=== PATIENT | female | born 1960 | race Caucasian/White ===

== ENCOUNTER 2017-03-12 10:24 | Inpatient (IN) | payer BC ==
[~2017-03-12] VITALS: Ht 160 cm; Wt 59.9 kg
[2017-03-12 11:24] LABS: HEMATOCRIT 49.9 % (36.0-46.0); MCH 33.3 PG (29.0-34.0); MCHC 33.9 G/DL (30.0-36.0); MCV 98.4 FL (83-99); MEAN PLAT.VOLUME 9.9 uM^3 (9.5-12.4); PLATELET COUNT 259 K/uL (156-360); RBC DIS.WIDTH-CV 12.8 % (11.8-14.6); RBC DIS.WIDTH-SD 46.1 % (39-53); RED BLOOD COUNT 5.07 M/uL (3.80-5.20); WHITE BLOOD COUNT 6.1 K/uL (4.1-10.2)
[2017-03-12 11:33] LABS: CHLORIDE 107 mEq/L (99-109); POTASSIUM 4.2 mEq/L (3.7-5.4); SODIUM 141 mEq/L (136-147)
[2017-03-12 11:35] LABS: GLUCOSE 111 mg/dL (70-99)
[2017-03-12 11:36] LABS: ANION GAP 10 MEQ/L (2-14)
[2017-03-12 11:39] LABS: GFR ESTIMATE (CALCULATED) > 59 mL/min/
[2017-03-12 11:40] LABS: UREA NITROGEN (BUN) 14 mg/dL (9-23)
[2017-03-12] MEDS ORDERED: ANORO ELLIPTA1 EACH IH (13:39)
[2017-03-12] MEDS ORDERED: PREMPRO 0.451 TABLET PO (13:39)
[2017-03-12] MEDS ORDERED: LEVO-T75 MCG PO (13:39)
[2017-03-12] MEDS ORDERED: PROAIR HFA8.5 GM IH (13:40)
[2017-03-12] MEDS ORDERED: CALCIUM 600 +1 EAC2 PO (13:40)
[2017-03-12] MEDS ORDERED: VITAMIN E400 UNIT PO (13:40)
[2017-03-12] MEDS ORDERED: DAILY VITE1 EAC1 PO (13:41)
[2017-03-12] MEDS ORDERED: ECHINACEA EXTR125 MG PO (13:41)
[2017-03-12] MEDS ORDERED: BIOTIN1000 MICRO PO (13:41)
[2017-03-12] MEDS ORDERED: FISH OIL 1,0001 EAC7 PO (13:42)
[2017-03-12 18:16] LABS: AMPHETAMINE NEGATIVE (500 ng/mL); BARBITURATES NEGATIVE (200 ng/mL); BENZODIAZEPINES NEGATIVE (150 ng/mL); COCAINE NEGATIVE (150 ng/mL); INTERNAL CONTROLS VALID? YES; METHADONE NEGATIVE (200 ng/mL); METHAMPHETAMINE NEGATIVE (500 ng/mL); OPIATES (MORPHINE) PRESUMPTIVE POSITIVE (100 ng/mL); OXYCODONE NEGATIVE (100 ng/mL); PHENCYCLIDINE NEGATIVE (25 ng/mL); PROPOXYPHENE NEGATIVE (300 ng/mL); THC CANNABINOIDS NEGATIVE (50 ng/mL); TRICYCLIC ANTIDEPRESSANTS NEGATIVE (300 ng/mL)
[2017-03-12 18:17] LABS: ADD MEDTOX COMMENT Y
[2017-03-12 18:38] VITALS: BP 105/55
[2017-03-12 20:20] VITALS: BP 95/49
[2017-03-12 23:42] VITALS: BP 104/50
[2017-03-13 04:02] VITALS: BP 104/51
[2017-03-13 07:56] VITALS: BP 121/60
[2017-03-13 12:00] VITALS: BP 114/55
[2017-03-13 16:02] VITALS: BP 122/58
[2017-03-13 19:50] VITALS: BP 120/53
[2017-03-13 23:32] VITALS: BP 107/51
[2017-03-14 08:00] VITALS: BP 111/54
[2017-03-14 16:57] VITALS: BP 116/56
[2017-03-14 23:40] VITALS: BP 105/55
[2017-03-15 08:11] VITALS: BP 108/61
[2017-03-15 16:24] VITALS: BP 117/73
[2017-03-15 23:45] VITALS: BP 105/55
[2017-03-16 07:26] VITALS: BP 108/53
[2017-03-16 15:47] VITALS: BP 111/59
== END 2017-03-16 19:11 | disposition home or self-care (01) | DRG 200 ==
LOC: EME 10:24 → EDOF 14:20 → 3EAST 14:20
PROVIDERS: Thoracic Surgery (Cardiothoracic Vascular Surgery)
PROC: 0W9930Z Drainage of Right Pleural Cavity with Drainage Device, Percutaneous Approach (ICD-10-PCS; principal; 2017-03-12)
DX: J93.83 Other pneumothorax (principal); J44.9 Chronic obstructive pulmonary disease, unspecified; F17.210 Nicotine dependence, cigarettes, uncomplicated; R06.09 Other forms of dyspnea; E05.90 Thyrotoxicosis, unspecified without thyrotoxic crisis or storm; Z88.1 Allergy status to other antibiotic agents; J98.11 Atelectasis
CPT/HCPCS: 71010; 71020; 71250; 80048; 84999; 85027; 94640; 94640 76; 94799; 99202; 99281; 99285; J1644; J1885; J2250; J2270; J2405; J3010

== ENCOUNTER 2017-03-18 10:18 | Inpatient (IN) | payer BC ==
[~2017-03-18] VITALS: Ht 160 cm; Wt 59.0 kg
[~2017-03-18 10:18] MED LIST: ANORO ELLIPTA1 EACH IH; BIOTIN1000 MICRO PO; CALCIUM 600 +1 EAC2 PO; DAILY VITE1 EAC1 PO; ECHINACEA EXTR125 MG PO; FISH OIL 1,0001 EAC7 PO; LEVO-T75 MCG PO; PREMPRO 0.451 TABLET PO; PROAIR HFA8.5 GM IH; VITAMIN E400 UNIT PO
[2017-03-18 11:43] LABS: HEMATOCRIT 41.7 % (36.0-46.0); MCH 33.2 PG (29.0-34.0); MCHC 33.6 G/DL (30.0-36.0); MCV 98.8 FL (83-99); MEAN PLAT.VOLUME 9.8 uM^3 (9.5-12.4); PLATELET COUNT 221 K/uL (156-360); RBC DIS.WIDTH-CV 13.1 % (11.8-14.6); RBC DIS.WIDTH-SD 47.3 % (39-53); RED BLOOD COUNT 4.22 M/uL (3.80-5.20)
[2017-03-18 11:54] LABS: CHLORIDE 108 mEq/L (99-109); POTASSIUM 4.5 mEq/L (3.7-5.4); SODIUM 142 mEq/L (136-147)
[2017-03-18 11:56] LABS: GLUCOSE 102 mg/dL (70-99)
[2017-03-18 11:57] LABS: ANION GAP 10 MEQ/L (2-14)
[2017-03-18 12:00] LABS: GFR ESTIMATE (CALCULATED) > 59 mL/min/
[2017-03-18 12:01] LABS: UREA NITROGEN (BUN) 10 mg/dL (9-23)
[2017-03-18 12:02] LABS: TROP-I INTERPRETATION NEGATIVE; TROPONIN-I < 0.01 ng/mL (0.0-0.30)
[2017-03-18 20:38] VITALS: BP 113/69
[2017-03-19 00:15] VITALS: BP 102/51
[2017-03-19 04:06] VITALS: BP 106/56
[2017-03-19 07:44] VITALS: BP 115/58
[2017-03-19 11:48] VITALS: BP 128/62
[2017-03-19 15:41] VITALS: BP 116/57
[2017-03-19 23:31] VITALS: BP 101/50
[2017-03-20 07:35] VITALS: BP 100/64
[2017-03-20 16:00] VITALS: BP 128/54
[2017-03-20 20:06] VITALS: BP 102/50
[2017-03-21 00:08] VITALS: BP 102/55
[2017-03-21 03:36] VITALS: BP 114/56
[2017-03-21 08:03] VITALS: BP 100/59
[2017-03-21 11:50] VITALS: BP 107/69
[2017-03-21 15:50] VITALS: BP 110/53
[2017-03-21 20:00] VITALS: BP 103/49
[2017-03-22] VITALS (7 sets, daily range): BP systolic 94–117; BP diastolic 51–78
[2017-03-22 08:51] LABS: EOSINOPHIL (%) 3.4 % (0-5); EOSINOPHIL COUNT 0.2 K/uL (0-0.3); HEMATOCRIT 37.7 % (36.0-46.0); IMMATURE GRANULOCYTE (%) 0.6 % (0.0-0.7); INSTRUMENT ABS NEUTROPHIL CT 3.3 K/uL; MCH 34.4 PG (29.0-34.0); MCV 101.3 FL (83-99); MEAN PLAT.VOLUME 9.5 uM^3 (9.5-12.4); MONOCYTE (%) 8.7 % (3-12); MONOCYTE COUNT 0.4 K/uL (0-0.8); NEUTROPHIL (%) 66.5 % (45-76); NEUTROPHIL COUNT 3.3 K/uL (1.8-6.4); PLATELET COUNT 259 K/uL (156-360); RBC DIS.WIDTH-CV 12.5 % (11.8-14.6); RBC DIS.WIDTH-SD 46.9 % (39-53); RED BLOOD COUNT 3.72 M/uL (3.80-5.20)
[2017-03-22 09:22] LABS: ANION GAP 8 MEQ/L (2-14); CHLORIDE 106 MEQ/L (99-109); GFR ESTIMATE (CALCULATED) > 59 mL/min/; GLUCOSE 98 mg/dL (70-99); POTASSIUM 4.5 MEQ/L (3.7-5.4); SAMPLE HEMOLYSIS CHECK 0; SAMPLE ICTERIC CHECK 0; SAMPLE LIPEMIA CHECK 0; SODIUM 144 MEQ/L (136-147); UREA NITROGEN (BUN) 17 mg/dL (9-23)
[2017-03-23] VITALS (7 sets, daily range): BP systolic 94–119; BP diastolic 50–58
[2017-03-23 07:24] LABS: HEMATOCRIT 35.2 % (36.0-46.0); MCH 33.7 PG (29.0-34.0); MCHC 33.5 G/DL (30.0-36.0); MCV 100.6 FL (83-99); MEAN PLAT.VOLUME 9.8 uM^3 (9.5-12.4); PLATELET COUNT 259 K/uL (156-360); RBC DIS.WIDTH-CV 12.8 % (11.8-14.6); RBC DIS.WIDTH-SD 47.2 % (39-53)
[2017-03-23 07:41] LABS: ANION GAP 5 MEQ/L (2-14); CHLORIDE 105 MEQ/L (99-109); GFR ESTIMATE (CALCULATED) > 59 mL/min/; GLUCOSE 117 mg/dL (70-99); POTASSIUM 4.3 MEQ/L (3.7-5.4); SAMPLE HEMOLYSIS CHECK 0; SAMPLE ICTERIC CHECK 0; SAMPLE LIPEMIA CHECK 0; SODIUM 140 MEQ/L (136-147); UREA NITROGEN (BUN) 14 mg/dL (9-23)
[2017-03-24 05:24] VITALS: BP 109/54
[2017-03-24 09:17] VITALS: BP 108/62
[2017-03-24 13:00] VITALS: BP 98/55
[2017-03-24 16:56] VITALS: BP 98/53
[2017-03-24 19:00] VITALS: BP 104/58
[2017-03-24 23:00] VITALS: BP 113/56
[2017-03-25 03:15] VITALS: BP 115/58
[2017-03-25 08:15] VITALS: BP 84/52
[2017-03-25 11:37] VITALS: BP 104/55
[2017-03-25 16:09] VITALS: BP 95/51
[2017-03-25 19:00] VITALS: BP 107/51
[2017-03-25 22:30] VITALS: BP 102/55
[2017-03-26 04:30] VITALS: BP 130/56
[2017-03-26 07:30] VITALS: BP 100/56
[2017-03-26 11:09] VITALS: BP 101/50
[2017-03-26 15:07] VITALS: BP 107/56
[2017-03-26 19:00] VITALS: BP 101/55
[2017-03-26 23:00] VITALS: BP 99/59
[2017-03-27 03:00] VITALS: BP 114/56
[2017-03-27 07:45] VITALS: BP 112/55
[2017-03-27 11:00] VITALS: BP 116/66
[2017-03-27 15:00] VITALS: BP 111/67
[2017-03-27 19:30] VITALS: BP 110/56
[2017-03-27 23:00] VITALS: BP 115/57
[2017-03-28 03:37] VITALS: BP 109/54
[2017-03-28 07:54] VITALS: BP 109/55
[2017-03-28] MEDS ORDERED: ENDOCET 5-3251 EACH PO (10:02)
[2017-03-28] MEDS ORDERED: MOTRIN600 MG PO (10:02)
== END 2017-03-28 11:58 | disposition home or self-care (01) | DRG 164 ==
LOC: EME 10:18 → EDOF 17:40 → 3EAST 17:40 → 4EAST 17:40 → 3EAST 20:04 → 4EAST 03-22 13:59
PROVIDERS: Nurse Practitioner Family; Thoracic Surgery (Cardiothoracic Vascular Surgery)
PROC: 0W9930Z Drainage of Right Pleural Cavity with Drainage Device, Percutaneous Approach (ICD-10-PCS; principal; 2017-03-18)
PROC: 0BBC4ZX Excision of Right Upper Lung Lobe, Percutaneous Endoscopic Approach, Diagnostic (ICD-10-PCS; 2017-03-22)
PROC: 0B5N4ZZ Destruction of Right Pleura, Percutaneous Endoscopic Approach (ICD-10-PCS; 2017-03-22)
PROC: 0W9930Z Drainage of Right Pleural Cavity with Drainage Device, Percutaneous Approach (ICD-10-PCS; 2017-03-22)
PROC: 0BBD4ZX Excision of Right Middle Lung Lobe, Percutaneous Endoscopic Approach, Diagnostic (ICD-10-PCS; 2017-03-22)
DX: J93.83 Other pneumothorax (principal); J43.9 Emphysema, unspecified; J98.11 Atelectasis; J95.812 Postprocedural air leak; Y83.8 Other surgical procedures as the cause of abnormal reaction of the patient, or of later complication, without mention of misadventure at the time of the procedure; F17.210 Nicotine dependence, cigarettes, uncomplicated; R09.02 Hypoxemia; M19.90 Unspecified osteoarthritis, unspecified site
CPT/HCPCS: 71010; 71020; 80048; 84484; 85025; 85027; 88305; 93005; 94640; 94640 76; 94760; 94799; 99202; 99281; 99285; C1729; C1769; J0330; J0690; J1100; J1170; J1650; J1885; J2270; J2405; J2710; J2765; J3010; J7120